=== PATIENT | female | born 1985 | race Caucasian/White ===

== ENCOUNTER 2020-02-18 22:53 | Inpatient (IN) | payer MEDICAID ==
[~2020-02-18] VITALS: Ht 167.6 cm; Wt 88.7 kg
[2020-02-18 23:01] VITALS: Ht 167.6 cm; Wt 88.7 kg
[2020-02-19 01:40] LABS: PLATELET COUNT 250 x10^3mcL (130-400); RED CELL DISTRIBUTION WIDTH 12.8 % (11.5-14.5)
[2020-02-19 01:44] LABS: CALCIUM 8.3 mg/dL (8.5-10.1); CARBON DIOXIDE 27.5 mmol/L (21-32); CHLORIDE SERUM 103 mmol/L (98-107); CREATININE SERUM 0.7 mg/dL (0.6-1.0); GFR1 > 60 mL/min; GLUCOSE SERUM 101 mg/dL (74-106); POTASSIUM SERUM 3.8 mmol/L (3.5-5.1); SODIUM SERUM 136 mmol/L (136-145)
[2020-02-19 01:50] LABS: ALKALINE PHOSPHATASE 77 U/L (46-116); ALT/SGPT 15 U/L (14-59); AST/SGOT 6 U/L (15-37); C REACTIVE PROTEIN 3.5 mg/dL (<=0.9); TOTAL PROTEIN, SERUM 6.4 g/dL (6.4-8.2)
[2020-02-19 01:52] LABS: ALBUMIN 3.3 g/dL (3.4-5.0)
[2020-02-19 02:24] LABS: MONOCYTE 9 % (0-7); PLATELET MORPHOLOGY PLATELETS NORMAL; SEGMENTED NEUTROPHILS 63 % (37-75); rbc morphology (normal/abnorm) NORMAL (NORMAL)
[2020-02-19 02:26] LABS: ERYTHROCYTE SED RATE 25 mm/hr (0-20)
[2020-02-19 11:32] VITALS: BP 116/75
[2020-02-19 11:36] LABS: SOURCE FLUID SYNOVIAL FLUID
[2020-02-19 11:37] LABS: APPEARANCE FLUID TURBID; COLOR FLUID MILKY; LYMPHOCYTE FLUID 0 %; MONOCYTE FLUID 5 %; RBC FLUID 505 /cumm; WBC FLUID 17350 /cumm
[2020-02-19 12:38] LABS: C REACTIVE PROTEIN 3.3 mg/dL (<=0.9); CALCIUM 7.4 mg/dL (8.5-10.1); URIC ACID 3.6 mg/dL (2.6-6.0)
[2020-02-19 13:20] VITALS: BP 105/67
[2020-02-19 17:15] VITALS: BP 118/62
[2020-02-19 19:40] VITALS: BP 106/61
[2020-02-20 05:43] VITALS: BP 111/58
[2020-02-20 07:09] LABS: BASOPHIL % 0.4 % (0-2); PLATELET COUNT 244 x10^3mcL (130-400); RED CELL DISTRIBUTION WIDTH 12.8 % (11.5-14.5)
[2020-02-20 07:21] LABS: CARBON DIOXIDE 28.4 mmol/L (21-32); CHLORIDE SERUM 105 mmol/L (98-107); CREATININE SERUM 0.6 mg/dL (0.6-1.0); GFR1 > 60 mL/min; GLUCOSE SERUM 90 mg/dL (74-106); MAGNESIUM 1.9 mg/dL (1.8-2.4); PHOSPHOROUS 3.1 mg/dL (2.5-4.9); POTASSIUM SERUM 3.8 mmol/L (3.5-5.1); SODIUM SERUM 139 mmol/L (136-145)
[2020-02-20 07:52] VITALS: BP 111/70
[2020-02-20 08:36] LABS: microscopic required? YES; urine erythrocyte NEGATIVE (NEGATIVE)
[2020-02-20 09:10] LABS: RHEUMATOID ARTHRITIS FACTOR <10.0 IU/mL (0.0-13.9)
[2020-02-20 12:27] VITALS: BP 120/79
[2020-02-20 15:48] VITALS: BP 107/66
[2020-02-20 20:09] VITALS: BP 126/70
[2020-02-21 05:47] VITALS: BP 115/64
[2020-02-21 06:08] LABS: BASOPHIL % 0.7 % (0-2); PLATELET COUNT 228 x10^3mcL (130-400); RED CELL DISTRIBUTION WIDTH 13.3 % (11.5-14.5)
[2020-02-21 06:21] LABS: CALCIUM 7.5 mg/dL (8.5-10.1); CARBON DIOXIDE 28.4 mmol/L (21-32); CHLORIDE SERUM 106 mmol/L (98-107); CREATININE SERUM 0.7 mg/dL (0.6-1.0); GFR1 > 60 mL/min; GLUCOSE SERUM 89 mg/dL (74-106); POTASSIUM SERUM 4.2 mmol/L (3.5-5.1); SODIUM SERUM 140 mmol/L (136-145)
[2020-02-21 08:44] VITALS: BP 123/78
[2020-02-21 13:16] VITALS: BP 126/83
[2020-02-21 20:02] VITALS: BP 122/73
[2020-02-22 05:21] VITALS: BP 134/79
[2020-02-22 07:05] LABS: BASOPHIL % 0.6 % (0-2); PLATELET COUNT 260 x10^3mcL (130-400)
[2020-02-22 07:43] LABS: CALCIUM 8.2 mg/dL (8.5-10.1); CARBON DIOXIDE 28.4 mmol/L (21-32); CHLORIDE SERUM 105 mmol/L (98-107); CREATININE SERUM 0.6 mg/dL (0.6-1.0); GFR1 > 60 mL/min; GLUCOSE SERUM 82 mg/dL (74-106); SODIUM SERUM 139 mmol/L (136-145)
[2020-02-22 09:16] VITALS: BP 125/88
[2020-02-22 13:13] VITALS: BP 139/80
[2020-02-22 17:30] VITALS: BP 133/81
[2020-02-22 20:42] VITALS: BP 135/91
[2020-02-23 05:30] VITALS: BP 128/75
[2020-02-23 06:41] LABS: BASOPHIL % 0.6 % (0-2); PLATELET COUNT 281 x10^3mcL (130-400); RED CELL DISTRIBUTION WIDTH 12.9 % (11.5-14.5)
[2020-02-23 06:51] LABS: CARBON DIOXIDE 29.9 mmol/L (21-32); CHLORIDE SERUM 103 mmol/L (98-107); CREATININE SERUM 0.6 mg/dL (0.6-1.0); GFR1 > 60 mL/min; GLUCOSE SERUM 85 mg/dL (74-106); POTASSIUM SERUM 3.7 mmol/L (3.5-5.1); SODIUM SERUM 138 mmol/L (136-145)
[2020-02-23 09:16] VITALS: BP 135/85
[2020-02-23 13:24] VITALS: BP 123/74
[2020-02-23 17:26] VITALS: BP 112/63
[2020-02-23 22:05] VITALS: BP 149/70
[2020-02-24 06:05] VITALS: BP 145/91
[2020-02-24 08:02] VITALS: BP 144/93
[2020-02-24 12:25] VITALS: BP 123/76
[2020-02-24 16:11] VITALS: BP 124/64
[2020-02-24 20:13] VITALS: BP 139/87
[2020-02-25 06:31] VITALS: BP 118/72
[2020-02-25 07:22] LABS: BASOPHIL % 0.5 % (0-2); PLATELET COUNT 311 x10^3mcL (130-400)
[2020-02-25 07:30] LABS: CALCIUM 8.7 mg/dL (8.5-10.1); CARBON DIOXIDE 28.4 mmol/L (21-32); CHLORIDE SERUM 103 mmol/L (98-107); CREATININE SERUM 0.5 mg/dL (0.6-1.0); GFR1 > 60 mL/min; GLUCOSE SERUM 80 mg/dL (74-106); POTASSIUM SERUM 4.4 mmol/L (3.5-5.1); SODIUM SERUM 137 mmol/L (136-145)
[2020-02-25 08:20] VITALS: BP 121/85
[2020-02-25] MEDS ORDERED: MOT600 PO (11:31)
[2020-02-25] MEDS ORDERED: NORCO1 TA2 PO (11:31)
[2020-02-25] MEDS ORDERED: SUPRAX400 M1 PO (11:31)
[2020-02-25 11:59] VITALS: BP 121/85
[2020-02-25 12:02] VITALS: BP 129/72
== END 2020-02-25 13:06 | disposition home or self-care (01) | DRG 313 ==
LOC: ED 22:53 → MU 02-19 04:45
PROVIDERS: Emergency Medicine; Orthopaedic Surgery; Student in an Organized Health Care Education/Training Program; ADMIT Internal Medicine; ATTEND Internal Medicine
PROC: 0MDN0ZZ Extraction of Right Knee Bursa and Ligament, Open Approach (ICD-10-PCS; 2020-02-19)
PROC: 0S9C0ZZ Drainage of Right Knee Joint, Open Approach (ICD-10-PCS; principal; 2020-02-19 06:00)
DX: M00.9 Pyogenic arthritis, unspecified (principal); A54.9 Gonococcal infection, unspecified; M71.561 Other bursitis, not elsewhere classified, right knee; E44.1 Mild protein-calorie malnutrition; D64.9 Anemia, unspecified; F41.9 Anxiety disorder, unspecified; F32.9 Major depressive disorder, single episode, unspecified; E28.2 Polycystic ovarian syndrome; Z90.49 Acquired absence of other specified parts of digestive tract; Z68.30 Body mass index [BMI] 30.0-30.9, adult
CPT/HCPCS: 86431; G0378; J0690; J0696; J1170; J1885; J2001; J2060; J2270; J2405; J2543; J3010; J3370; J3490; J7030; Q0092